=== PATIENT | female | born 1990 | race Caucasian/White ===

== ENCOUNTER 2016-04-21 00:08 | Emergency (ER) | payer MEDICAID ==
[2016-04-21] MEDS ORDERED: SODIUM CHLORIDE 0.9% 1,000 ML ONE (01:53)
[2016-04-21] MEDS ORDERED: ONDANSETRON 4 MG VIAL ONE (01:53)
[2016-04-21] MEDS ORDERED: KETOROLAC 30 MG/ML VIAL ONE (01:53)
[2016-04-21] MEDS ORDERED: TRAMADOL 50 MG TAB ONE (02:47)
[2016-04-21] MEDS ORDERED: DICYCLOMINE 10 MG CAP ONE (02:47)
== END 2016-04-21 03:14 | disposition home or self-care (01) ==
LOC: ER 00:08
DX: R10.31 Right lower quadrant pain (principal); I88.0 Nonspecific mesenteric lymphadenitis
CPT/HCPCS: 36415; 74176; 80053; 81003; 83690; 85025; 96361; 96374; 96375

== ENCOUNTER 2016-05-07 21:57 | Emergency (ER) | payer MEDICAID ==
[2016-05-07] MEDS ORDERED: OPTIRAY 350 100 ML VIAL HMH IV ONE (21:58)
[2016-05-07] MEDS ORDERED: KETOROLAC 30 MG/ML VIAL ONE (23:09)
[2016-05-07] MEDS ORDERED: ONDANSETRON 4 MG VIAL ONE (23:09)
== END 2016-05-08 00:13 | disposition home or self-care (01) ==
LOC: ER 21:57
DX: R10.31 Right lower quadrant pain (principal)
CPT/HCPCS: 36415; 74177; 80053; 81003; 83690; 84703; 85025; 96374; 96375